=== PATIENT | male | born 1990 | race Caucasian/White ===

== ENCOUNTER 2023-11-09 14:36 | Emergency (ER) | payer OTHER ==
[~2023-11-09] VITALS: Ht 167.6 cm; Wt 80.7 kg
[2023-11-09 14:51] VITALS: BP 150/87; PULSE 112; RESP 23; TEMP 98.8; O2SAT 99
[2023-11-09] MEDS: NACL 0.9% 1,000 ML IV ONE (15:13)
[2023-11-09] MEDS: DIAZEPAM PFS 10 MG/2 ML SYR IVP ONE (15:14)
[2023-11-09] MEDS: ONDANSETRON 4 MG/2 ML VIAL IVP ONE (15:16)
[2023-11-09 17:11] VITALS: BP 112/59; PULSE 88; RESP 17; O2SAT 96
[2023-11-09 17:24] LABS: AMPHETAMINE, URINE NEGATIVE ng/ml (NEG <=1000); BARBITURATE, URINE NEGATIVE ng/ml (NEG <=200); BENZODIAZEPINE, URINE NEGATIVE ng/mL (NEG <=200); CANNABINOID, URINE POSITIVE ng/mL (NEG <=50); COCAINE, URINE NEGATIVE ng/mL (NEG <=300); OPIATE, URINE NEGATIVE ng/mL (NEG <=2000); PHENCYCLIDINE SCREEN,URINE NEGATIVE ng/mL (NEG <=25)
== END 2023-11-09 17:11 | disposition home or self-care (01) ==
LOC: MED 14:36
DX: R00.0 Tachycardia, unspecified (principal); R00.2 Palpitations; F12.10 Cannabis abuse, uncomplicated
CPT/HCPCS: 80305; 93005; 96361; 96374; 96375; 99284; J2405; J3360; J7030